=== PATIENT | male | born 1935 | race Caucasian/White ===

== ENCOUNTER 2019-08-07 07:22 | Day surgery (SDC) | payer MEDICARE ==
[2019-08-06 14:41] VITALS: BP 104/58
[2019-08-06 15:02] LABS: BASOPHIL % 0.2 % (0.0-0.2); EOSINOPHIL # 0.4 10^3/uL (0.0-0.2); EOSINOPHIL % 5.2 % (0.0-5.0); LYMPHOCYTES # 1.5 10^3/uL (1.0-4.8); LYMPHOCYTES % 18.9 % (24.0-44.0); MEAN CELL HGB 32.1 pg (26-34); MEAN CELL HGB CONCENTRATION 33.8 g/dL (33-37); MEAN CORP VOLUME 94.8 fL (78-100); MEAN PLATELET VOLUME 11.7 fL (7.8-11.0); MONOCYTES # 1.1 10^3/uL (0.3-0.8); MONOCYTES % 13.5 % (5.0-12.0); NEUTROPHILS % 61.7 % (41.0-85.0); RED CELL DISTRIBUTION WIDTH 13.4 % (11.5-14.5); WHITE BLOOD CELL 8.1 10^3/uL (4.5-11.0)
[2019-08-06 15:37] LABS: CALCIUM 9.6 mg/dL (8.4-10.5); CARBON DIOXIDE 25.5 mmol/L (20.0-32)
--- NOTE | 2019-08-06 16:09 | DIREP ---
PROCEDURE:CHEST 2 VIEWS COMPARISON:None. INDICATIONS:PRE-OP PERRMANENT PACEMAKER, END OF LIFE GENERATOR FINDINGS: LUNGS/PLEURA:No significant pulmonary parenchymal abnormalities. No effusions. VASCULATURE:Normal. Unremarkable pulmonary vasculature. CARDIAC:Left subclavian ICD MEDIASTINUM:Normal. No visible mass or adenopathy. BONES:Normal. No fracture or visible bony lesion. OTHER:Negative. CONCLUSION: 1. No acute cardiopulmonary abnormality. Dictated by: Thad Enamorado Jr. on 08/06/2019 at 02:52 PM Read in [place]
[~2019-08-07] VITALS: Ht 172.7 cm; Wt 134.7 kg
[~2019-08-07 07:22] MED LIST: ALBU8.5H7 IH; CARV25TA PO; CETI10TA18 PO; CHOL500016 PO; DESO15OI3 TP; DOCU-170 PO; LOSA25TA12 PO; NS 1000ML 1,000 ML IV SCH; NS 1000ML 1,000 ML ONE; NS 250ML 250 ML IV ONE; OM3-1CAP PO; OXYB5TAB10 PO; PITA2TAB PO; RIVA20TA PO; SPIR25TA PO; VANCOMYCIN 1,000 MG in NS 100ML 100 ML IV ONE; VANCOMYCIN HCL 1 GM ONE; VIT1TABL PO; [UNRECOGNIZED DRUG - CODE] PO; [UNRECOGNIZED DRUG - CODE] PO
[2019-08-07 07:26] VITALS: BP 156/75
[2019-08-07] MEDS ORDERED: LIDOCAINE 2% VIAL ONE ×2 (07:31→08:06)
[2019-08-07] MEDS ORDERED: DIPRIVAN IV ONE (07:31)
[2019-08-07] MEDS ORDERED: SUBLIMAZE ONE (07:31)
[2019-08-07] MEDS ORDERED: GENTAMICIN 80 MG/NS 100 ML PB 100 ML IV ONE (08:06)
[2019-08-07] MEDS ORDERED: SODIUM CHLORIDE IR ONE (08:06)
[2019-08-07 09:55] VITALS: BP 119/46
[2019-08-07 10:10] VITALS: BP 113/50
[2019-08-07] MEDS ORDERED: CEPH-350 PO (10:20)
--- NOTE | 2019-08-07 11:08 | OPH ---
DATE OF SURGERY: 08/07/2019 BIVENTRICULAR PACER ICD GENERATOR CHANGE OUT PREOPERATIVE DIAGNOSES: JOHN of biventricular pacer ICD, cardiomyopathy, with left bundle branch block, chronic systolic heart failure. EP-guided therapy with inducible VT generator placed in 2011. POSTOPERATIVE DIAGNOSES: JOHN of biventricular pacer ICD, cardiomyopathy, with left bundle branch block, chronic systolic heart failure. EP-guided therapy with inducible VT generator placed in 2011, replacement of generator. ANTIBIOTIC PROPHYLAXIS: Vancomycin 1 gram IV piggyback during the procedure. ANESTHESIA: TIVA by MANAGER LANDSCAPE. DEVICE EXPLANTED: [employer] device Assura MP. DEVICE IMPLANTED: Quadra Assura MP [id number], chronic atrial lead is a [employer] Tendril 46 cm [id number], implanted in 2011. RV pacing ICD lead is [employer] Durata 7122Q, 58 cm, serial #[id number]. LV lead is a [employer] Quartet 1458Q, 86 cm, serial #[id number], implanted in 04/2012. STIMULATION THRESHOLD: Right atrium was 0.5 volt threshold at 0.5 milliseconds, greater than 5 millivolt P-wave and 460 ohms. RV is 0.75 volt threshold at 0.5 milliseconds, 11.7 millivolt R wave 760 ohms. Bipolar configuration. LV lead is 1.5 volt threshold at 0.5 milliseconds, 390 ohms. LV2 is 460 ohms, not performed. M3 to RVC high voltage impedance 105 ohms. RV to the CAN. Device is programmed to DDDR, lower rate 70, upper rate is 110. Max track rate is 110. Paced AV delay 140 milliseconds, sensed AV delay of 110 milliseconds. Ventricular pacing is RV to LV1 to LV2. VT zone detection zone is 181 beats per minute, ATP x 4 followed by 27.5 joules first shock, followed by 36 joule shock, followed by two 40 joule shock. VF zone is 222 beats per minute, ATP x 1 followed by 27.5 joules per shock, followed by 36 joules second shock and 40 joule shocks x4. NARRATION OF PROCEDURE: After premedication and with vancomycin being infused under full aseptic conditions, 2% local anesthesia was instilled over the existing device pocket and incision was made over the existing device pocket and after careful dissection of the skin, subcutaneous tissue, fat tissue and the capsule of the device was excised and the old hemostasis was achieved while doing the dissection. The old device was extracted from the pocket. All the respective leads were disconnected from the pocket and connected to the respective ports of the new device. Measurements were done through the new device. Garamycin irrigation of the pocket was done. The device was kept in the pocket. Again, full measurements were done and then the device pocket was closed with interrupted sutures, followed by application of metal isabelle. The patient tolerated the procedure well and brought to outpatient area for 2 hours and will be dismissed home on Keflex 500 mg 3 times a day and to have wound check done on 08/08/2019 at 10:00 by Joyce in my office. Continue all his medications. No complication of the procedure. Tinyhand MD Vern DR: ISSA/nydia JOB# [id number]
== END 2019-08-07 10:55 | disposition home or self-care (01) ==
LOC: SDC 07:22
PROVIDERS: ATTEND Specialist
DX: Z45.02 Encounter for adjustment and management of automatic implantable cardiac defibrillator (principal); I48.0 Paroxysmal atrial fibrillation; I11.0 Hypertensive heart disease with heart failure; I50.42 Chronic combined systolic (congestive) and diastolic (congestive) heart failure; I42.2 Other hypertrophic cardiomyopathy; E78.5 Hyperlipidemia, unspecified; E66.01 Morbid (severe) obesity due to excess calories; Z98.890 Other specified postprocedural states; Z79.01 Long term (current) use of anticoagulants; Z79.899 Other long term (current) drug therapy; Z72.89 Other problems related to lifestyle; Z68.45 Body mass index [BMI] 70 or greater, adult; Z85.828 Personal history of other malignant neoplasm of skin; Z87.891 Personal history of nicotine dependence; Z82.5 Family history of asthma and other chronic lower respiratory diseases; Z82.49 Family history of ischemic heart disease and other diseases of the circulatory system
CPT/HCPCS: 33264; 36415; 71046; 80053; 85025; 85610; A4217; C1882; J2001 ×2; J3010; J3370; J3490; J7030; J7050; J1580

== ENCOUNTER → 2022-07-19 | Outpatient (CLI) | payer MEDICARE ==
[~2022-07-19] MED LIST changes: +CEPH-350 PO; -DOCU-170 PO; -NS 1000ML 1,000 ML IV SCH; -NS 1000ML 1,000 ML ONE; -NS 250ML 250 ML IV ONE; -VANCOMYCIN 1,000 MG in NS 100ML 100 ML IV ONE; -VANCOMYCIN HCL 1 GM ONE; +[UNRECOGNIZED DRUG - CODE] PO
[2022-07-19 10:35] LABS: BASOPHIL % 0.4 % (0.0-0.2); EOSINOPHIL # 0.5 10^3/uL (0.0-0.2); EOSINOPHIL % 6.2 % (0.0-5.0); LYMPHOCYTES # 1.76 10^3/uL1 (1.0-4.8); LYMPHOCYTES % 23.6 % (24.0-44.0); MEAN CORP HGB 31.4 pg (26-34); MONOCYTES # 0.9 10^3/uL (0.3-0.8); MONOCYTES % 11.9 % (5.0-12.0); NEUTROPHIL # 4.3 10^3/uL (1.8-7.7); NEUTROPHILS % 57.9 % (41.0-85.0); RED CELL DISTRIBUTION WIDTH 12.9 % (11.5-14.5)
== END | disposition home or self-care (01) ==
LOC: LAB 10:01
DX: D64.9 Anemia, unspecified (principal)
CPT/HCPCS: 36415; 82728; 83550; 85025; 85045

== ENCOUNTER → 2023-01-25 | Outpatient (CLI) | payer MEDICARE | END | disposition home or self-care (01) | LOC: NPLAB 16:20 | PROVIDERS: ATTEND Specialist | DX: R07.0 Pain in throat (principal); B34.9 Viral infection, unspecified; Z20.822 Contact with and (suspected) exposure to COVID-19 | CPT/HCPCS: 87637 ==

== ENCOUNTER → 2023-01-25 | Outpatient (CLI) | payer MEDICARE ==
[2023-01-25 15:32] LABS: MEAN CORP HGB 31.6 pg (26-34); RED CELL DISTRIBUTION WIDTH 12.4 % (11.5-14.5)
[2023-01-25 15:53] LABS: CARBON DIOXIDE 26.5 mmol/L (20.0-32)
== END | disposition home or self-care (01) ==
LOC: LAB 15:03
PROVIDERS: ATTEND Specialist
DX: I11.0 Hypertensive heart disease with heart failure (principal); I50.9 Heart failure, unspecified; E78.00 Pure hypercholesterolemia, unspecified; I42.9 Cardiomyopathy, unspecified; R63.0 Anorexia; B34.9 Viral infection, unspecified
CPT/HCPCS: 36415; 80053; 80061; 84145; 84443; 85025; 85027; 86140